=== PATIENT | male | born 1940 | race Caucasian/White ===

== ENCOUNTER 2018-01-16 19:09 | Inpatient (IN) ==
[2018-01-16] MEDS ORDERED: Ipratropium/Albuterol Neb 3 ML IH ONE ×2 (19:39→22:13)
[2018-01-16] MEDS ORDERED: 0.9 % Sodium Chloride 1,000 ML IVC ONE (19:39)
[2018-01-16 19:56] LABS: Basophils % 0.1 %; Hematocrit 47.5 % (37.5-50.1); Immature Granulocytes % 0.4 % (0-4); Lymphocytes # 1.4 K/mcL (0.6-4.6); Lymphocytes % 14.4 %; Mean Corpuscular HGB Conc 33.7 g/dL (31.6-35.5); Mean Corpuscular Hemoglobin 31.9 pg (28.0-33.3); Mean Corpuscular Volume 94.8 fL (83.0-100.0); Mean Platelet Volume 10.6 fL (9.4-12.4); Monocytes # 0.8 K/mcL (0.0-1.3); Monocytes % 8.4 %; Neutrophils # 7.7 K/mcL (1.6-8.9); Platelet Count 213 K/mcL (140-400); Red Blood Count 5.01 M/mcL (4.19-5.50); Red Cell Distribution Width 13.5 % (11.5-14.5); Segmented Neutrophils % 76.7 %
[2018-01-16 20:11] LABS: BUN/Creatinine Ratio 28 (6-26); Blood Urea Nitrogen 26 mg/dL (8-23); Calcium 8.9 mg/dL (8.6-10.3); Carbon Dioxide 28 mEq/L (23-29); Chloride 95 mEq/L (98-107); Glucose 124 mg/dL (70-105); Osmolality,Calculated 274 (280-300); Potassium 4.6 mEq/L (3.5-5.1); Sodium 129 mEq/L (136-145); eGFR For African Americans > 60 (> 60); eGFR For Non-African Americans > 60 (> 60)
--- NOTE | 2018-01-16 20:58 | Emergency Department Note ---
START Narrative - START START: I examined this patient and my medical decision-making was reviewed with the STATEMENT CLERK/PA/Advanced Practice Nurse/Resident Physician. I agree with the documented findings, disposition and treatment plan as described except to the extent set forth below. ED attending: Patient's emergency medicine resident Dr. SMILEY CHERRY Please see copy of this note for H&P evaluation and management and ED disposition. We both had independent [id number] time in contact with this patient. Briefly: 77-year-old male with 50+-pack-year tobacco history presents with cough shortness of breath and chills. He was also hypoxic in the mid to high 80s. He is not on home O2. Patient had just faint expiratory wheezing EKG shows no acute ischemic changes does not have an elevated white count chest x- ray did not show too much is going to get a CT angiogram of his chest to exclude either mass tumor nodules or pulmonary embolism. Providing 30 minutes of critical care services for this patient, admission disposition pending
--- NOTE | 2018-01-16 21:15 | Emergency Department Note ---
Disposition Clinical Impression: Hypoxia, COPD exacerbation Dyspnea Qualifiers: Dyspnea type: unspecified Qualified Code(s): R06.00 - Dyspnea, unspecified Pneumonia Qualifiers: Pneumonia type: due to unspecified organism Laterality: unspecified laterality Lung location: unspecified part of lung Qualified Code(s): J18.9 - Pneumonia, unspecified organism Disposition: Admitted As Inpatient Condition: Good SOB HPI - General Chief Complaint: ED Shortness of Breath/Dyspnea Stated Complaint: BLOSSOM, low O2 Source: patient, family Limitations: no limitations Nursing Notes Reviewed: Yes Vital Signs Reviewed: Yes - History of Present Illness Patient presents today for evaluation of worsening dyspnea. Patient is concerned about possible chest cold. Patient has had symptoms for the last several days progressive in nature. Worse with lying flat. Associated exertional dyspnea. No chest pain associated. Patient has a history of COPD and significant smoking pack year history however does not use inhalers require home oxygen. Patient does have a pulse ox at home saying that his oxygen had been running low. Upon arrival the patient's oxygen was in the mid 80s. He is placed on 3 L and is much more comfortable. Patient was given a breathing treatment due to significant history and has only had minor relief. Patient will receive blood work as well as CTA. - Related Data Home Medications Medication Instructions Recorded Confirmed Guaifenesin [Mucinex] 600 mg PO BID 01/16/18 01/16/18 Tiotropium [Spiriva] 18 mcg IH DAILY 01/16/18 01/16/18 Allergies Allergy/AdvReac Type Severity Reaction Status Date / Time No Known Allergies Allergy Verified 01/16/18 19:56 Review of Systems: CONSTITUTIONAL: Weakness and fatigue No weight loss, fever, chills HEENT: Eyes: No visual changes. Ears, Nose, Throat: No hearing loss, difficulty talking or unable to swallow. SKIN: No rash or itching. CARDIOVASCULAR: No chest pain, chest pressure or chest discomfort. No palpitations or edema. RESPIRATORY: Shortness of breath associated cough and no sputum production GASTROINTESTINAL: No anorexia, nausea, vomiting or diarrhea. No abdominal pain or blood. GENITOURINARY: No burning on urination or hematuria. NEUROLOGICAL: No headache, dizziness, syncope, paralysis, ataxia, numbness or tingling in the extremities. No change in bowel or bladder control. MUSCULOSKELETAL: No muscle pain, back pain, joint pain or stiffness. Past Medical History - Past Medical History Medical history: Reports: non-contributory - Social History Smoking Status: Former smoker Smokeless Tobacco Status: No Alcohol use: Reports: none Drug use: Reports: none Physical Exam General: Well appearing, nontoxic, no acute distress Head: Normocephalic Atraumatic Eyes: PERRL, EOMI ENT: Airway patent, no stridor Neck: supple, no meningismus Chest: Mild expiratory wheezing more prominent on the left lung. Patient has anterior rails to the right. Cardiac: Regular rate and rhythm, no murmurs, rubs or gallops Abdomen: soft, nontender, nondistended; no guarding, rebound, or tenderness to percussion Musculoskeletal: Calves symmetric, nontender, no palpable cord Skin: No rash, normal skin tone Neuro: Alert and Oriented to person, place, and time; No focal deficit, CN 2-12 symmetric and intact - General Limitations: no limitations General appearance: alert, in no apparent distress Course - Reevaluation(s) Reevaluation #1: CTA negative. Patient got up to go to the bathroom and oxygen dropped to 85%. Patient will need to be brought in for hypoxia. Patient given steroids and ceftriaxone and azithromycin. Patient pulse ox is 96% on 2 L. Vital Signs Temperature 97.6 F 01/16/18 19:20 Pulse Rate 88 01/16/18 19:20 Respiratory Rate 24 01/16/18 19:20 Blood Pressure 156/90 01/16/18 19:20 O2 Sat by Pulse Oximetry 96 01/16/18 19:20 Temperature 97.6 F 01/16/18 19:20 Pulse Rate 90 01/16/18 22:20 Respiratory Rate 16 01/16/18 22:20 Blood Pressure 167/93 01/16/18 22:20 O2 Sat by Pulse Oximetry 98 01/16/18 22:20 Oxygen Delivery Oxygen Delivery Nasal Cannula Shortness of Breath/Dyspnea - Medical Records Medical records reviewed: Yes I reviewed the patient's medical records. - Lab Data Lab results reviewed: Yes I reviewed the patient's lab results. Result diagrams: 01/16/18 19:40 01/16/18 19:40 Lab Results 01/16/18 01/16/18 01/16/18 Range/Units 19:40 19:40 19:40 WBC 10.0 (4.3-11.1) K/mcL RBC 5.01 (4.19-5.50) M/mcL Hgb 16.0 (12.9-16.9) g/dL Hct 47.5 (37.5-50.1) % MCV 94.8 (83.0-100.0) fL MCH 31.9 (28.0-33.3) pg MCHC 33.7 (31.6-35.5) g/dL RDW 13.5 (11.5-14.5) % Plt Count 213 (140-400) K/mcL MPV 10.6 (9.4-12.4) fL Immature Gran % 0.4 (0-4) % Seg Neutrophils % 76.7 % Lymphocytes % 14.4 % Monocytes % 8.4 % Eosinophils % 0.0 % Basophils % 0.1 % Neutrophils # 7.7 (1.6-8.9) K/mcL Lymphocytes # 1.4 (0.6-4.6) K/mcL Monocytes # 0.8 (0.0-1.3) K/mcL Eosinophils # 0.0 (0.0-0.6) K/mcL Basophils # 0.0 (0.0-0.2) K/mcL Sodium 129 L (136-145) mEq/L Potassium 4.6 (3.5-5.1) mEq/L Chloride 95 L (98-107) mEq/L Carbon Dioxide 28 (23-29) mEq/L BUN 26 H (8-23) mg/dL Creatinine 0.93 (0.70-1.30) mg/dL Est GFR ( Amer) > 60 (> 60) Est GFR (Non-Af Amer) > 60 (> 60) BUN/Creatinine Ratio 28 H (6-26) Glucose 124 H (70-105) mg/dL Calculated Osmolality 274 L (280-300) Calcium 8.9 (8.6-10.3) mg/dL Troponin I < 0.03 (< 0.04) ng/mL B-Natriuretic Peptide (Less than 100) pg/mL 01/16/18 Range/Units 19:40 WBC (4.3-11.1) K/mcL RBC (4.19-5.50) M/mcL Hgb (12.9-16.9) g/dL Hct (37.5-50.1) % MCV (83.0-100.0) fL MCH (28.0-33.3) pg MCHC (31.6-35.5) g/dL RDW (11.5-14.5) % Plt Count (140-400) K/mcL MPV (9.4-12.4) fL Immature Gran % (0-4) % Seg Neutrophils % % Lymphocytes % % Monocytes % % Eosinophils % % Basophils % % Neutrophils # (1.6-8.9) K/mcL Lymphocytes # (0.6-4.6) K/mcL Monocytes # (0.0-1.3) K/mcL Eosinophils # (0.0-0.6) K/mcL Basophils # (0.0-0.2) K/mcL Sodium (136-145) mEq/L Potassium (3.5-5.1) mEq/L Chloride (98-107) mEq/L Carbon Dioxide (23-29) mEq/L BUN (8-23) mg/dL Creatinine (0.70-1.30) mg/dL Est GFR ( Amer) (> 60) Est GFR (Non-Af Amer) (> 60) BUN/Creatinine Ratio (6-26) Glucose (70-105) mg/dL Calculated Osmolality (280-300) Calcium (8.6-10.3) mg/dL Troponin I (< 0.04) ng/mL B-Natriuretic Peptide 132 H (Less than 100) pg/mL - Radiology Data Radiology results reviewed: Yes I reviewed the patient's radiology results. - EKG Data EKG attestation: Yes I reviewed and interpreted this EKG. EKG results narrative: Right EKG shows sinus rhythm with short TX interval. Ventricular rate 91. TX is 116. QRS 107. QTC 406. Patient isin the past elevations or depressions. No previous EKG for comparison.
[2018-01-16] MEDS ORDERED: Azithromycin 500 MG in D5% in Water 250 ML IVPB ONE (22:19)
[2018-01-16] MEDS ORDERED: methylPREDNISolone 125 MG/2 ML VIAL IVP ONE (22:19)
[2018-01-16] MEDS ORDERED: cefTRIAXone 1,000 MG in Water for inj. (sterile) 20 ML 10 ML IVP ONE (22:19)
[2018-01-17] MEDS ORDERED: Naloxone 0.4 MG/ML INJ IVP PRN (00:46)
[2018-01-17] MEDS ORDERED: Ipratropium/Albuterol Neb 3 ML IH PRN (00:52)
--- NOTE | 2018-01-17 01:00 | Internal Med History&Physical ---
Date of Encounter: 01/17/18 Time of Encounter: 00:56 Assessment and Plan (1) COPD exacerbation Current visit: Yes Status: Acute 77/M Very occasionally see primary care physician. Last visit with the primary care physician was more than a few years ago. Has progressively worsening shortness of breath for the past 6 months. Gradual deterioration in past 1 week. Noted that there was a change in the color of expectoration. Family brought him for further evaluation. On examination: Patient is using accessory muscles of respiration. He has a polyphonic rhonchi. Assessment: COPD exacerbation likely secondary to infective origin, patient has pneumonia Lungs noted. Plan: Admit as inpatient. Intravenous ceftriaxone 1 g every 24 hours. Intravenous azithromycin 500 mg every 24 hours. Intravenous on Lipitor 40 mg every 8 hours. Inhaled bronchodilators every 2-4 hours. Close monitoring of the respiratory status. Of note: I have examined this patient in emergency room #33. Plan of care explained to the patient at length. QUESTIONS answered. (2) Pneumonia Current visit: Yes Status: Acute see above Qualifiers: Pneumonia type: due to unspecified organism Laterality: unspecified laterality Lung location: unspecified part of lung Qualified Code(s): J18.9 - Pneumonia, unspecified organism (3) Dyspnea Current visit: Yes Status: Acute See above Qualifiers: Dyspnea type: unspecified Qualified Code(s): R06.00 - Dyspnea, unspecified (4) Smoker Current visit: Yes Status: Acute Discussed with the patient at length regarding smoking cessation. Patient told me that he will think over it and let me know regarding the same. (5) DVT prophylaxis Current visit: Yes Status: Acute Heparin Medical decision making: This patient has a moderate to severe risk of worsening in spite of being on appropriate medication due to the underlying comorbid conditions Internal Medicine - H&P: HPI Chief complaint: Shortness of breath. Admitted From: Emergency Dept Plans for Post Hospital Care: Home History of present illness: 77/M, [facility] PCP: Dr Peng, Does not go to [facility] Brief PMH: COPD, Chronic smoker HPI: Patient has ongoing shortness of breath along with cough for more than 6 months. In last 4-5 days patient's symptoms were progressively worsened. There was a change in the color of expectoration. Patient was unable to walk even 10 steps at home and this was in precipitating event where the family decided to bring him to the hospital for further evaluation. Patient complains of persistent shortness of breath along with mild edema feet. Patient claims that it is really difficult even to talk at some times. Patient smokes everyday around 2-2.5 packs of cigarettes for more than 40 years. Patient denies chest pain, nausea, vomiting, abdominal pain, dizziness and diarrhea. Workup in the emergency room: Patient was evaluated in the emergency room basic labs were drawn. CTA chest was performed. Patient has honeycombing appearance along with that there is a possibility of a mass noted. Patient has initially issues regarding getting hospitalized and further workup but after a long discussion patient decided to stay in the hospital and get workup done. Reason for admission: COPD exacerbation/possibility of a lung nodule/mass Family history: Noncontributory Past Med Surg Social Fam HX - Past Medical History Medical history: COPD Psychiatric history: no psych history - Past Surgical History Surgical History: no surgical history - Social History Smoking Status: Former smoker Packs per day: 2 Smokeless Tobacco Status: No Alcohol use: none Drug use: none - Family History Mother Hx Family Cancer: Yes Internal Medicine - H&P: Meds Guaifenesin [Mucinex] 600 mg PO BID 01/16/18 [History] Tiotropium [Spiriva] 18 mcg IH DAILY 01/16/18 [History] 3 Allergy/AdvReac Type Severity Reaction Status Date / Time No Known Allergies Allergy Verified 01/16/18 19:56 All Systems PM: A 10-system review of systems was performed and is negative for pertinent findings except as documented above in the HPI. - Constitutional Constitutional: no chills, no fever(s), no night sweats - EENT Eyes: no change in vision, no discharge, no pain, no photophobia Ears: no ear discharge, no ear pain, no tinnitus Nose, mouth and throat: no dysphagia, no nasal discharge, no neck pain, no sore throat - Cardiovascular Cardiovascular ROS IM: diaphoresis, dyspnea, no chest pain, no lightheadedness, no palpitations, no syncope - Respiratory Respiratory: cough, dyspnea, wheezing, excessive phlegm production - Gastrointestinal Gastrointestinal: no abdominal pain, no diarrhea, no hematemesis, no hematochezia, no melena, no nausea, no vomiting - Musculoskeletal Musculoskeletal ROS IM: no numbness, no tingling - Integumentary Integumentary IM: no rash, no unusual bruising - Neurological Neurological ROS: no confusion, no convulsions, no focal weakness, no numbness, no tingling, no tremor(s) - Hematologic/Lymphatic Hematologic/Lymphatic: no easy bruising - Constitutional Vitals: Temp Pulse Resp BP Pulse Ox 97.7 F 48 16 155/80 99 01/17/18 00:15 01/17/18 00:15 01/17/18 00:15 01/17/18 00:15 01/17/18 00:15 General appearance: Present: A&O X 3, pleasant, no acute distress, answers questions appropriately - Head Head exam: Present: atraumatic, normocephalic - Eye Eye exam: Present: periorbital tenderness, PERRL, conjuntiva pink, sclera anicteric Pupils: Present: normal accommodation - Neck Neck exam general surgery: Present: supple, trachea midline. Absent: lymphadenopathy - Respiratory Respiratory exam: Present: chest wall tenderness, decreased breath sounds, CTAB , rhonchi, wheezes. Absent: accessory muscle use, rales - Cardiovascular Cardiovascular exam: Present: RRR, +S1, +S2. Absent: diastolic murmur, gallop, rubs, systolic murmur - GI/Abdominal GI/Abdominal exam: Present: normal bowel sounds, soft, no peritoneal signs. Absent: distended, tenderness - Extremities Exam Extremities exam: Present: warm, radial pulses palpable and symmetrical. Absent : calf tenderness, cyanotic, pedal edema - Neurological Exam Neurological exam: Present: CN II-XII intact, oriented X3, no focal deficits. Absent: pronater drift, facial droop, speech deficit - Skin Skin exam: Present: dry, intact Internal Med - H&P Results - Labs CBC & Chem 7: 01/17/18 01:09 01/16/18 19:40
[2018-01-17 01:36] LABS: Basophils % 0.1 %; Hematocrit 46.4 % (37.5-50.1); Hemoglobin 15.4 g/dL (12.9-16.9); Immature Granulocytes % 0.2 % (0-4); Lymphocytes # 0.5 K/mcL (0.6-4.6); Lymphocytes % 6.1 %; Mean Corpuscular HGB Conc 33.2 g/dL (31.6-35.5); Mean Corpuscular Hemoglobin 31.9 pg (28.0-33.3); Mean Corpuscular Volume 96.1 fL (83.0-100.0); Mean Platelet Volume 10.5 fL (9.4-12.4); Monocytes # 0.2 K/mcL (0.0-1.3); Monocytes % 2.3 %; Neutrophils # 7.8 K/mcL (1.6-8.9); Platelet Count 206 K/mcL (140-400); Red Blood Count 4.83 M/mcL (4.19-5.50); Red Cell Distribution Width 13.4 % (11.5-14.5); Segmented Neutrophils % 91.3 %
[2018-01-17 01:45] LABS: Activated Partial Thrombo Time 27.1 Seconds (26.0-36.0)
[2018-01-17 01:54] LABS: Alanine Aminotransferase 23 Units/L (7-52); Albumin 3.4 g/dL (3.5-5.7); Albumin/Globulin Ratio 1.1 (1.1-2.2); Alkaline Phosphatase 68 Units/L (34-104); Aspartate Amino Transferase 39 Units/L (13-39); BUN/Creatinine Ratio 26 (6-26); Bilirubin,Total 0.3 mg/dL (0.3-1.0); Blood Urea Nitrogen 23 mg/dL (8-23); Calcium 8.5 mg/dL (8.6-10.3); Carbon Dioxide 26 mEq/L (23-29); Chloride 97 mEq/L (98-107); Chol/HDL Ratio 3.8 (0-4.9); Cholesterol 163 mg/dL (< 200); Globulin 3.1 g/dL (2.4-3.5); Glucose 171 mg/dL (70-105); HDL Cholesterol 43 mg/dL (40-59); LDL Cholesterol,Calculated 99 mg/dL (0-99); Osmolality,Calculated 276 (280-300); Phosphorous 3.6 mg/dL (2.7-4.5); Potassium 4.6 mEq/L (3.5-5.1); Sodium 129 mEq/L (136-145); Total Protein 6.5 g/dL (6.4-8.9); Triglycerides 104 mg/dL (< 150); eGFR For African Americans > 60 (> 60); eGFR For Non-African Americans > 60 (> 60)
[2018-01-17 02:55] VITALS: BP 169/73
[2018-01-17 03:40] LABS: ABG Base Excess -2 mEq/L (-2 to 3); ABG HCO3 26 mEq/L (21-27); ABG Oxygen Saturation 97 % (95-98); ABG PCO2 59 mmHg (35-45); ABG PH 7.26 pH Units (7.32-7.45); ABG PO2 106 mmHg (85-104); ABG TCO2 28 mEq/L (20-26)
--- NOTE | 2018-01-17 04:59 | Discharge Summary ---
Date of Encounter: 01/17/18 Time of Encounter: 04:57 - Discharge Diagnosis (1) Cerebral hemorrhage Priority: Primary Status: Acute (2) COPD exacerbation Priority: Primary Status: Acute (3) Pneumonia Priority: Primary Status: Acute Qualifiers: Pneumonia type: due to unspecified organism Laterality: unspecified laterality Lung location: unspecified part of lung Qualified Code(s): J18.9 - Pneumonia, unspecified organism (4) Dyspnea Priority: Primary Status: Acute Qualifiers: Dyspnea type: unspecified Qualified Code(s): R06.00 - Dyspnea, unspecified (5) Smoker Priority: Primary Status: Acute (6) DVT prophylaxis Priority: Secondary Status: Acute - Discharge Medications Home Medications: Guaifenesin [Mucinex] 600 mg PO BID 01/16/18 [History] Tiotropium [Spiriva] 18 mcg IH DAILY 01/16/18 [History] Ipratropium/Albuterol Neb [Duoneb] 3 ml IH [id number] PRN inhsol 01/17/18 [Rx] Allergies/Adverse Reactions: 3 Allergy/AdvReac Type Severity Reaction Status Date / Time No Known Allergies Allergy Verified 01/16/18 19:56 Procedures/tests Complete & Pending: Procedures Performed prior 72 hours Category Date Time Status Head CT without Contrast [CT head/brain wo con] [CT] Cat Scan 01/17/18 03:54 Completed Stat Date of admission: 01/17/18 00:46 Primary care physician: Mark Peng DO Discharging clinician: Holden Lucia - Patient Status Disposition: Transfer Other Condition: Serious Functional capacity at discharge: bed bound Overall status at discharge: patient is progressing back to baseline - Discharge Instructions Forms: ED Satisfaction Letter Interval History: 77/M, [place] PCP: Dr Peng, [facility] not [facility] Brief PMH: COPD, Chronic smoker HPI: Patient has ongoing shortness of breath along with cough for more than 6 months. In last 4-5 days patient's symptoms were progressively worsened. There was a change in the color of expectoration. Patient was unable to walk even 10 steps at home and this was in precipitating event where the family decided to bring him to the hospital for further evaluation. Patient complains of persistent shortness of breath along with mild edema feet. Patient claims that it is really difficult even to talk at some times. Patient smokes everyday around 2-2.5 packs of cigarettes for more than 40 years. Patient denies chest pain, nausea, vomiting, abdominal pain, dizziness and diarrhea. Workup in the emergency room: Patient was evaluated in the emergency room basic labs were drawn. CTA chest was performed. Patient has honeycombing appearance along with that there is a possibility of a mass noted. Patient has initially issues regarding getting hospitalized and further workup but after a long discussion patient decided to stay in the hospital and get workup done. Reason for admission: COPD exacerbation/possibility of a lung nodule Hospital course: 77/M Very occasionally see primary care physician. Last visit with the primary care physician was more than a few years ago. Has progressively worsening shortness of breath for the past 6 months. Gradual deterioration in past 1 week. Noted that there was a change in the color of expectoration. Family brought him for further evaluation. On examination: Patient is using accessory muscles of respiration. He has a polyphonic rhonchi. Assessment: COPD exacerbation likely secondary to infective origin, patient has pneumonia Lungs noted. Plan: Admit as inpatient. Intravenous ceftriaxone 1 g every 24 hours. Intravenous azithromycin 500 mg every 24 hours. Intravenous on Lipitor 40 mg every 8 hours. Inhaled bronchodilators every 2-4 hours. Close monitoring of the respiratory status. I was called by nurse and informed that patient is more drowsy. Urgent blood gas was suggestive of hypercapnia that is CO2 was 59 CT head without contrast was planned. I spoke with Dr. Langford from radiology who will be that there is a possibility of intracerebral bleed He raised 3 different options intracerebral bleed/retained contrast/ calcification in the sylvian fissure area. Upon straight questioning to Dr. Langford regarding possibilities, he said possibility of a intracerebral bleed is extremely high and on top of the 3 causes. I spoke with the patient's daughter regarding above diagnoses. Discussed option of observing here and repeat CT scan. Family preferred to go to tertiary care center in [facility] for further management. I personally spoke with VENKATA Sung [facility]. All above updated. Patient is been accepted to [facility] All above again informed to family. All questions answered. The time of discharge family does not have any questions, concerns, update or recommendations. - Time Spent with Patient Total time spent providing and/or coordinating discharge services: - Constitutional Vitals: Temp Pulse Resp BP Pulse Ox 98.7 F 87 37 169/73 100 01/17/18 02:48 01/17/18 02:48 01/17/18 04:02 01/17/18 02:48 01/17/18 04:02 General appearance: Present: A&O X 3, pleasant, no acute distress, answers questions appropriately - Head Head exam: Present: atraumatic, normocephalic - Eye Eye exam: Present: PERRL, conjuntiva pink, sclera anicteric Pupils: Present: PERRL - Neck Neck exam general surgery: Present: supple, trachea midline. Absent: lymphadenopathy - Respiratory Respiratory exam: Present: CTAB. Absent: accessory muscle use, rales, rhonchi, wheezes - Cardiovascular Cardiovascular exam: Present: RRR, +S1, +S2. Absent: diastolic murmur, gallop, rubs, systolic murmur - GI/Abdominal GI/Abdominal exam: Present: normal bowel sounds, soft, no peritoneal signs. Absent: distended, tenderness - Extremities Exam Extremities exam: Present: warm, radial pulses palpable and symmetrical. Absent : calf tenderness, cyanotic, pedal edema - Neurological Exam Neurological exam: Present: CN II-XII intact, oriented X3, no focal deficits. Absent: pronater drift, facial droop, speech deficit - Skin Skin exam: Present: dry, intact
[2018-01-17] MEDS ORDERED: *HR* Heparin 5,000 UNIT/ML VIAL SQ SCH (06:00)
[2018-01-17] MEDS ORDERED: MethylPREDNISolone 40 MG/ML VIAL IVP SCH (08:00)
[2018-01-17] MEDS ORDERED: Azithromycin 500 MG in D5% in Water 250 ML IVPB SCH (18:00)
[2018-01-17] MEDS ORDERED: cefTRIAXone 1,000 MG in Water for inj. (sterile) 20 ML 10 ML IVPB SCH (18:00)
--- NOTE | 2018-01-21 02:09 | Electrocardiograph Report ---
[address] [address] Test Date: 2018-01-16 Pat Name: Bernard Yo Department: 103 Room: 3B Gender: M Obstetrics Gynecology Physician: RHIANNON : 1940 Requested By: Wm Velasco Order Number: [id number] Reading MD: Betzaida Castellanos Measurements Intervals [place] Rate: 88 P: 86 NC: 138 QRS: 61 QRSD: 113 T: 77 QT: 346 QTc: 392 Interpretive Statements SINUS RHYTHM WITH FREQUENT VENTRICULAR PREMATURE COMPLEXES POSSIBLE RIGHT ATRIAL ENLARGEMENT [0.25mV P WAVE] MODERATE INTRAVENTRICULAR CONDUCTION DELAY [110+ ms QRS DURATION] ABNORMAL RHYTHM ECG Electronically Signed On 01-21-2018 2:08:28 EST by Betzaida Castellanos
--- NOTE | 2018-01-21 02:10 | Electrocardiograph Report ---
[place] [address] Test Date: 2018-01-16 Pat Name: Bernard Yo Department: 103 Room: [facility] Gender: M Deputy Probation Officer: RHIANNON : 1940 Requested By: Arin Crane Order Number: [id number] Reading MD: Betzaida Castellanos Measurements Intervals [place] Rate: 91 P: 87 UT: 116 QRS: 63 QRSD: 107 T: 82 QT: 357 QTc: 406 Interpretive Statements SINUS RHYTHM WITH SHORT UT INTERVAL WITH OCCASIONAL VENTRICULAR PREMATURE COMPLEXES POSSIBLE RIGHT ATRIAL ENLARGEMENT [0.25mV P WAVE] Electronically Signed On 01-21-2018 2:08:38 EST by Betzaida Castellanos
== END 2018-01-17 07:18 | disposition other institution (70) | DRG 193 ==
LOC: EMEROO 19:09 → 3BNU 19:09
PROVIDERS: ADMIT Internal Medicine; ATTEND Registered Nurse

== ENCOUNTER 2020-04-28 11:50 | Inpatient (IN) ==
[2020-04-28] MEDS ORDERED: Isovue-370 500 ML BOTTLE IVP ONE (12:10)
[2020-04-28] MEDS ORDERED: Ipratropium/Albuterol Neb 3 ML IH ONE (12:27)
[2020-04-28 12:37] LABS: Basophils % 0.1 %; Hemoglobin 11.8 g/dL (12.9-16.9); Immature Granulocytes % 0.6 % (0-4); Lymphocytes # 0.6 K/mcL (0.6-4.6); Lymphocytes % 2.9 %; Mean Corpuscular HGB Conc 30.3 g/dL (31.6-35.5); Mean Corpuscular Hemoglobin 27.9 pg (28.0-33.3); Mean Corpuscular Volume 92.2 fL (83.0-100.0); Mean Platelet Volume 10.2 fL (9.4-12.4); Monocytes % 4.7 %; Neutrophils # 18.7 K/mcL (1.6-8.9); Platelet Count 420 K/mcL (140-400); Red Blood Count 4.23 M/mcL (4.19-5.50); Segmented Neutrophils % 91.7 %; White Blood Count 20.5 K/mcL (4.3-11.1)
[2020-04-28 13:16] LABS: BUN/Creatinine Ratio 18 (6-26); Blood Urea Nitrogen 18 mg/dL (8-23); Calcium 9.4 mg/dL (8.6-10.3); Carbon Dioxide 33 mEq/L (23-29); Chloride 100 mEq/L (98-107); Glucose 122 mg/dL (70-105); Osmolality,Calculated 293 (280-300); Potassium 4.2 mEq/L (3.5-5.1); Sodium 140 mEq/L (136-145); Troponin I 0.08 ng/mL (< 0.04); eGFR For African Americans > 60 (> 60); eGFR For Non-African Americans > 60 (> 60)
[2020-04-28] MEDS ORDERED: Piperacillin/Tazobactam 3.375 GM in 0.9 % Sodium Chloride Mini Bag 100 ML IVPB ONE (13:39)
[2020-04-28] MEDS ORDERED: Azithromycin 500 MG in 0.9 % Sodium Chloride 250 ML IVPB ONE (14:28)
[2020-04-28] MEDS ORDERED: Naloxone 0.4 MG/ML INJ IVP PRN (14:40)
[2020-04-28] MEDS ORDERED: Ipratropium/Albuterol Neb 3 ML IH PRN (15:58)
[2020-04-28] MEDS ORDERED: Ondansetron ODT 4 MG TAB.RAPDIS SL PRN (15:58)
[2020-04-28 16:59] LABS: Bilirubin,Urine Small (Negative); Blood,Urine Large (Negative); Clarity,Urine Clear (Clear); Color,Urine Yellow (Yellow); Glucose,Urine (UA) Normal (Normal); Ketones,Urine Trace mg/dL (Negative); Leukocyte Esterase,Urine Negative (Negative); Nitrite,Urine Negative (Negative); PH,Urine 5.5 pH Units (5.0-8.0); Protein,Urine 30 mg/dL (Neg-Trace); Specific Gravity,Urine > 1.030 (1.010-1.025); Urobilinogen,Urine Normal (Normal)
[2020-04-28 17:00] LABS: Bacteria,Urine None Seen per hpf (None-Few); Hyaline Casts,Urine Few per lpf (None-Few); RBC,Urine TNTC per hpf (0-3); Squamous Epithelial Cell,Urine Many per lpf (None-Few)
[2020-04-28] MEDS ORDERED: cefTRIAXone 2,000 MG in Water for inj. (sterile) 20 ML IVP SCH (17:00)
[2020-04-28 17:46] LABS: ABG Base Excess 7 mEq/L (-2 to 3); ABG HCO3 34 mEq/L (21-27); ABG Oxygen Saturation 94 % (95-98); ABG PCO2 56 mmHg (35-45); ABG PH 7.39 pH Units (7.32-7.45); ABG PO2 74 mmHg (85-104); ABG TCO2 35 mEq/L (20-26)
[2020-04-28] MEDS: Doxycycline 100 MG in 0.9 % Sodium Chloride Mini Bag 100 ML IVPB SCH (18:20)
[2020-04-28] MEDS: Ipratropium/Albuterol Neb 3 ML IH SCH (21:21)
[2020-04-28] MEDS: MethylPREDNISolone 40 MG/ML VIAL IVP SCH (21:29)
[2020-04-28] MEDS: *HR* Heparin 5,000 UNIT/ML VIAL SQ SCH (21:29)
[2020-04-29] MEDS: Ipratropium/Albuterol Neb 3 ML IH SCH ×7 (00:12→23:15)
[2020-04-29] MEDS: Piperacillin/Tazobactam 3.375 GM in 0.9 % Sodium Chloride Mini Bag 100 ML IVPB SCH ×4 (00:36→23:34)
[2020-04-29] MEDS: MethylPREDNISolone 40 MG/ML VIAL IVP SCH ×4 (00:37→23:34)
[2020-04-29 01:53] LABS: Basophils % 0.1 %; Hematocrit 35.4 % (37.5-50.1); Hemoglobin 10.9 g/dL (12.9-16.9); Immature Granulocytes % 0.6 % (0-4); Lymphocytes # 0.6 K/mcL (0.6-4.6); Lymphocytes % 2.8 %; Mean Corpuscular HGB Conc 30.8 g/dL (31.6-35.5); Mean Corpuscular Hemoglobin 27.6 pg (28.0-33.3); Mean Corpuscular Volume 89.6 fL (83.0-100.0); Mean Platelet Volume 10.3 fL (9.4-12.4); Monocytes # 0.4 K/mcL (0.0-1.3); Monocytes % 1.7 %; Neutrophils # 21.7 K/mcL (1.6-8.9); Platelet Count 372 K/mcL (140-400); Red Blood Count 3.95 M/mcL (4.19-5.50); Segmented Neutrophils % 94.8 %; White Blood Count 22.9 K/mcL (4.3-11.1)
[2020-04-29 02:08] LABS: BUN/Creatinine Ratio 22 (6-26); Blood Urea Nitrogen 17 mg/dL (8-23); Calcium 8.8 mg/dL (8.6-10.3); Carbon Dioxide 28 mEq/L (23-29); Chloride 102 mEq/L (98-107); Glucose 113 mg/dL (70-105); Osmolality,Calculated 286 (280-300); Potassium 4.8 mEq/L (3.5-5.1); Sodium 137 mEq/L (136-145); eGFR For African Americans > 60 (> 60); eGFR For Non-African Americans > 60 (> 60)
[2020-04-29 02:50] LABS: Platelet Estimate Normal (Normal)
[2020-04-29] MEDS: Doxycycline 100 MG in 0.9 % Sodium Chloride Mini Bag 100 ML IVPB SCH ×2 (06:47→18:35)
[2020-04-29] MEDS: *HR* Heparin 5,000 UNIT/ML VIAL SQ SCH ×3 (06:47→21:24)
[2020-04-29] MEDS ORDERED: Cholecalciferol (D-3) 1,000 UNIT (25MCG) TABLET PO SCH (09:00)
[2020-04-29] MEDS ORDERED: Multivit/Ca/Min/Fe/FA 1 TAB TABLET PO SCH (09:00)
[2020-04-29] MEDS ORDERED: Tiotropium 18 MCG inhalation IH SCH (10:00)
[2020-04-29] MEDS ORDERED: Azithromycin 500 MG in 0.9 % Sodium Chloride 250 ML IVPB SCH (17:00)
[2020-04-29] MEDS ORDERED: Nicotine 21 MG PATCH.TD24 TD SCH (19:45)
[2020-04-30] MEDS ORDERED: Naloxone 0.4 MG/ML INJ IVP PRN (03:09)
[2020-04-30] MEDS ORDERED: Ondansetron ODT 4 MG TAB.RAPDIS SL PRN (03:09)
[2020-04-30] MEDS: Ipratropium/Albuterol Neb 3 ML IH SCH ×5 (04:00→20:26)
[2020-04-30] MEDS: Doxycycline 100 MG in 0.9 % Sodium Chloride Mini Bag 100 ML IVPB SCH ×2 (06:13→16:59)
[2020-04-30] MEDS: *HR* Heparin 5,000 UNIT/ML VIAL SQ SCH ×3 (06:14→21:36)
[2020-04-30 08:15] LABS: Basophils % 0.1 %; Hematocrit 31.5 % (37.5-50.1); Hemoglobin 9.8 g/dL (12.9-16.9); Immature Granulocytes % 0.5 % (0-4); Lymphocytes # 0.5 K/mcL (0.6-4.6); Lymphocytes % 2.7 %; Mean Corpuscular HGB Conc 31.1 g/dL (31.6-35.5); Mean Corpuscular Hemoglobin 28.2 pg (28.0-33.3); Mean Corpuscular Volume 90.5 fL (83.0-100.0); Mean Platelet Volume 10.4 fL (9.4-12.4); Monocytes # 0.5 K/mcL (0.0-1.3); Monocytes % 2.3 %; Neutrophils # 18.6 K/mcL (1.6-8.9); Platelet Count 373 K/mcL (140-400); Red Blood Count 3.48 M/mcL (4.19-5.50); Red Cell Distribution Width 14.8 % (11.5-14.5); Segmented Neutrophils % 94.4 %; White Blood Count 19.7 K/mcL (4.3-11.1)
[2020-04-30] MEDS: Tiotropium 18 MCG inhalation IH SCH (08:22)
[2020-04-30 08:25] LABS: BUN/Creatinine Ratio 42 (6-26); Blood Urea Nitrogen 37 mg/dL (8-23); Calcium 9.1 mg/dL (8.6-10.3); Carbon Dioxide 33 mEq/L (23-29); Chloride 102 mEq/L (98-107); Glucose 132 mg/dL (70-105); Osmolality,Calculated 299 (280-300); Potassium 3.9 mEq/L (3.5-5.1); Sodium 139 mEq/L (136-145); eGFR For African Americans > 60 (> 60); eGFR For Non-African Americans > 60 (> 60)
[2020-04-30] MEDS: MethylPREDNISolone 40 MG/ML VIAL IVP SCH ×2 (08:31→17:00)
[2020-04-30] MEDS: Piperacillin/Tazobactam 3.375 GM in 0.9 % Sodium Chloride Mini Bag 100 ML IVPB SCH ×2 (08:31→18:09)
[2020-04-30] MEDS: Nicotine 21 MG PATCH.TD24 TD SCH (08:31)
[2020-04-30] MEDS: Multivit/Ca/Min/Fe/FA 1 TAB TABLET PO SCH (08:32)
[2020-04-30] MEDS: Cholecalciferol (D-3) 1,000 UNIT (25MCG) TABLET PO SCH (08:32)
[2020-04-30] MEDS ORDERED: Furosemide 20 MG/2 ML VIAL IVP ONE (11:49)
[2020-04-30] MEDS ORDERED: Aminoglycoside Consult 1 EACH MC ONE (12:25)
[2020-04-30] MEDS: Vancomycin 500 MG in 0.9 % Sodium Chloride Mini Bag 100 ML IVPB SCH (14:36)
[2020-05-01] MEDS: Ipratropium/Albuterol Neb 3 ML IH SCH ×7 (00:26→23:20)
[2020-05-01] MEDS: MethylPREDNISolone 40 MG/ML VIAL IVP SCH ×4 (00:36→23:33)
[2020-05-01] MEDS: Piperacillin/Tazobactam 3.375 GM in 0.9 % Sodium Chloride Mini Bag 100 ML IVPB SCH ×4 (00:38→23:34)
[2020-05-01] MEDS: Vancomycin 500 MG in 0.9 % Sodium Chloride Mini Bag 100 ML IVPB SCH (01:39)
[2020-05-01] MEDS: Doxycycline 100 MG in 0.9 % Sodium Chloride Mini Bag 100 ML IVPB SCH ×2 (05:48→18:12)
[2020-05-01] MEDS: *HR* Heparin 5,000 UNIT/ML VIAL SQ SCH ×3 (05:49→21:21)
[2020-05-01] MEDS: Tiotropium 18 MCG inhalation IH SCH (07:27)
[2020-05-01] MEDS: Cholecalciferol (D-3) 1,000 UNIT (25MCG) TABLET PO SCH (08:05)
[2020-05-01] MEDS: Multivit/Ca/Min/Fe/FA 1 TAB TABLET PO SCH (08:05)
[2020-05-01] MEDS: Nicotine 21 MG PATCH.TD24 TD SCH (08:07)
[2020-05-01 11:55] LABS: Hematocrit 36.3 % (37.5-50.1); Hemoglobin 10.8 g/dL (12.9-16.9); Immature Granulocytes % 0.5 % (0-4); Lymphocytes # 0.4 K/mcL (0.6-4.6); Lymphocytes % 3.1 %; Mean Corpuscular HGB Conc 29.8 g/dL (31.6-35.5); Mean Corpuscular Hemoglobin 27.3 pg (28.0-33.3); Mean Corpuscular Volume 91.9 fL (83.0-100.0); Mean Platelet Volume 10.7 fL (9.4-12.4); Monocytes # 0.4 K/mcL (0.0-1.3); Monocytes % 2.8 %; Neutrophils # 12.3 K/mcL (1.6-8.9); Platelet Count 437 K/mcL (140-400); Red Blood Count 3.95 M/mcL (4.19-5.50); Red Cell Distribution Width 15.1 % (11.5-14.5); Segmented Neutrophils % 93.6 %; White Blood Count 13.1 K/mcL (4.3-11.1)
[2020-05-01 12:16] LABS: BUN/Creatinine Ratio 48 (6-26); Blood Urea Nitrogen 41 mg/dL (8-23); Calcium 9.4 mg/dL (8.6-10.3); Carbon Dioxide 37 mEq/L (23-29); Chloride 101 mEq/L (98-107); Glucose 190 mg/dL (70-105); Osmolality,Calculated 313 (280-300); Potassium 3.6 mEq/L (3.5-5.1); Sodium 144 mEq/L (136-145); eGFR For African Americans > 60 (> 60); eGFR For Non-African Americans > 60 (> 60)
[2020-05-02] MEDS: Ipratropium/Albuterol Neb 3 ML IH SCH ×4 (03:13→15:36)
[2020-05-02 04:41] LABS: Hematocrit 33.3 % (37.5-50.1); Hemoglobin 10.2 g/dL (12.9-16.9); Immature Granulocytes % 0.5 % (0-4); Lymphocytes # 0.6 K/mcL (0.6-4.6); Mean Corpuscular HGB Conc 30.6 g/dL (31.6-35.5); Mean Corpuscular Hemoglobin 27.9 pg (28.0-33.3); Mean Platelet Volume 10.4 fL (9.4-12.4); Monocytes # 0.3 K/mcL (0.0-1.3); Monocytes % 2.8 %; Neutrophils # 8.4 K/mcL (1.6-8.9); Platelet Count 356 K/mcL (140-400); Red Blood Count 3.66 M/mcL (4.19-5.50); Red Cell Distribution Width 15.1 % (11.5-14.5); Segmented Neutrophils % 90.7 %; White Blood Count 9.2 K/mcL (4.3-11.1)
[2020-05-02 04:59] LABS: BUN/Creatinine Ratio 51 (6-26); Blood Urea Nitrogen 40 mg/dL (8-23); Calcium 9.2 mg/dL (8.6-10.3); Carbon Dioxide 36 mEq/L (23-29); Chloride 104 mEq/L (98-107); Glucose 125 mg/dL (70-105); Osmolality,Calculated 305 (280-300); Potassium 4.4 mEq/L (3.5-5.1); Sodium 142 mEq/L (136-145); eGFR For African Americans > 60 (> 60); eGFR For Non-African Americans > 60 (> 60)
[2020-05-02] MEDS: *HR* Heparin 5,000 UNIT/ML VIAL SQ SCH ×2 (05:34→15:19)
[2020-05-02] MEDS: Doxycycline 100 MG in 0.9 % Sodium Chloride Mini Bag 100 ML IVPB SCH (05:34)
[2020-05-02] MEDS: Tiotropium 18 MCG inhalation IH SCH (07:18)
[2020-05-02] MEDS: Piperacillin/Tazobactam 3.375 GM in 0.9 % Sodium Chloride Mini Bag 100 ML IVPB SCH ×2 (07:34→16:18)
[2020-05-02] MEDS: Nicotine 21 MG PATCH.TD24 TD SCH (07:34)
[2020-05-02] MEDS: Cholecalciferol (D-3) 1,000 UNIT (25MCG) TABLET PO SCH (07:34)
[2020-05-02] MEDS: Multivit/Ca/Min/Fe/FA 1 TAB TABLET PO SCH (07:34)
[2020-05-02] MEDS: MethylPREDNISolone 40 MG/ML VIAL IVP SCH ×2 (07:34→16:22)
[2020-05-02 15:24] VITALS: BP 148/63
[2020-05-02] MEDS ORDERED: Doxycycline 100 MG CAPSULE PO SCH (18:00)
== END 2020-05-02 18:08 | disposition home health service (06) | DRG 871 ==
LOC: EMEROOARM 11:50 → 2NENU 11:50 → SUATTDRO 14:45 → 2NENU 14:51 → 2ANU 23:19
PROVIDERS: ADMIT Internal Medicine; ATTEND Internal Medicine